=== PATIENT | female | born 1950 | race Caucasian/White ===

== ENCOUNTER 2017-09-10 03:54 | Inpatient (IN) ==
[2017-09-10] MEDS ORDERED: ASPIRIN PO STA (04:05)
[2017-09-10] MEDS ORDERED: CARDIZEM IV ONE ×2 (04:07→16:13)
--- NOTE | 2017-09-10 04:12 | EKG Report ---
Test Performed on : 09/10/2017 04:01:08 AM Test Reason : CHEST PAIN Blood Pressure : / mmHG Vent. Rate : 132 BPM Atrial Rate : 264 BPM P-R Int : 000 ms QRS Dur : 096 ms QT Int : 358 ms P-R-T Axes : 000 077 072 degrees QTc Int : 530 ms Atrial flutter. with 2:1 AV conduction. Septal infarct , age undetermined Abnormal ECG No previous ECGs available Unconfirmed Result
[2017-09-10 04:24] LABS: MANUAL DIFF NEEDED? NO
[2017-09-10 04:29] LABS: BASO% 0.5 % (0.0-0.8); EOS# 0.26 X1000 (0.0-0.7); EOS% 2.6 % (0.0-10.0); HEMATOCRIT 32.7 % (37.0-47.0); IMM GRAN# 0.02 X1000 (0.0-0.04); IMM GRAN% 0.2 % (0.0-0.5); LYMPH# 1.77 X1000 (1.2-3.4); LYMPH% 17.5 % (20.5-51.1); MCH 28.8 PG (27-31); MCHC 30.6 g/dL (33-37); MCV 94.2 FL (81-99); MONO# 0.85 X1000 (0.11-0.59); MONO% 8.4 % (1.7-9.3); MPV 10.1 FL (7.4-10.4); NEUT% 70.8 % (42.2-75.2); PLT 211 X1000 (130-400); RBC 3.47 XMIL (4.2-5.4)
[2017-09-10 04:54] LABS: AGAP 15; ALBUMIN 3.3 g/dL (3.5-5.0); ALKALINE PHOSPHATASE 60 U/L (32-104); BUN 23 mg/dL (8-22); CALCIUM 9.7 mg/dL (8.8-10.2); CHLORIDE 101 mmol/L (98-107); COSMO 283; GOT 22 U/L (10-30); GPT 16 U/L (10-36); POTASSIUM 3.9 mmol/L (3.5-5.1); SODIUM 139 mmol/L (136-145); TCO2 22 mmol/L (25-35); TOTAL PROTEIN 7.5 g/dL (6.3-8.3)
[2017-09-10 04:57] LABS: INR 0.95 (0.86-1.15); PROTIME 13.4 Seconds (12.1-15.5)
[2017-09-10 04:58] LABS: PTT PL 30.8 Seconds (22.6-43.9)
[2017-09-10 05:06] LABS: CK PROFILE 198 U/L (24-173)
[2017-09-10] MEDS ORDERED: LASIX IV ONE (05:31)
[2017-09-10 05:32] LABS: CK INDEX 1.6 (0.0-2.5); CK-MB 3.09 ng/mL (0.0-5.0)
[2017-09-10] MEDS ORDERED: NITROGLYCERIN TOP ONE (05:35)
[2017-09-10] MEDS ORDERED: LOPRESSOR IV ONE (06:56)
[2017-09-10] MEDS ORDERED: LOVENOX 1 MG/KG SUBQ ONE (07:00)
[2017-09-10] MEDS ORDERED: LOVENOX ONE (07:07)
--- NOTE | 2017-09-10 07:41 | Diag Imaging Result Doc PS360 ---
EXAM: CHEST-2 VIEWS - 09/10/2017 HISTORY: CP TECHNIQUE: Chest two views COMPARISON: None. FINDINGS: Heart size appears mildly enlarged. 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 There is apparent central vascular congestion. There is a small right pleural effusion. There is no dense consolidation or pneumothorax identified. There is thoracic spondylosis noted. IMPRESSION: Cardiomegaly with apparent central vascular congestion. Electronically signed by Gianni Leija 09/10/2017 7:39 AM
[2017-09-10 08:03] LABS: CK INDEX 1.6 (0.0-2.5); CK-MB 3.28 ng/mL (0.0-5.0)
--- NOTE | 2017-09-10 08:17 | Diag Imaging Result Doc PS360 ---
EXAM: CT ANGIOGRM/PULMONARY ARTERIES - 09/10/2017 HISTORY: SOB with [id number] D-dimer TECHNIQUE: With intravenous contrast. Axial and reformatted coronal MIP images are obtained. Low-dose protocol not used. COMPARISON: None. FINDINGS: There are no discrete filling defects which are distinguishable from artifacts identified pulmonary arteries. There is cardiomegaly. 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 There is a possible prosthetic aortic valve. There is mild interstitial marking prominence. There is a small right pleural effusion with adjacent mild dependent/compressive atelectasis. There is a tiny left pleural effusion. There is no consolidation or pneumothorax identified. There are mildly prominent mediastinal lymph nodes. IMPRESSION: No evidence of pulmonary embolism. Cardiomegaly with mild congestive heart failure. Mild mediastinal adenopathy. Electronically signed by Gianni Leija 09/10/2017 8:15 AM
--- NOTE | 2017-09-10 16:18 | EKG Report ---
Test Performed on : 09/10/2017 4:13:57 PM Test Reason : Elevated HR Blood Pressure : / mmHG Vent. Rate : 130 BPM Atrial Rate : 131 BPM P-R Int : 112 ms QRS Dur : 108 ms QT Int : 364 ms P-R-T Axes : 000 097 090 degrees QTc Int : 535 ms Sinus tachycardia. Septal infarct (cited on or before 10-SEP-2017) Lateral infarct , age undetermined Abnormal ECG When compared with ECG of 10-SEP-2017 04:01, (Unconfirmed) Sinus rhythm. has replaced Atrial flutter. Unconfirmed Result
[2017-09-10] MEDS ORDERED: LOPRESSOR PO SCH (17:00)
[2017-09-10 17:31] LABS: CK INDEX 1.5 (0.0-2.5); CK-MB 3.07 ng/mL (0.0-5.0)
[2017-09-10] MEDS: LOVENOX SUBQ SCH (18:48)
[2017-09-10] MEDS: LASIX IV SCH (20:25)
[2017-09-10] MEDS: CARDIZEM 100 MG/NS 100 MG/100 ML IVPB IV SCH (21:59)
[2017-09-11] MEDS: CARDIZEM 100 MG/NS 100 MG/100 ML IVPB IV SCH ×2 (04:45→15:15)
--- NOTE | 2017-09-11 06:25 | EKG Report ---
Test Performed on : 09/11/2017 06:16:12 AM Test Reason : afib Blood Pressure : / mmHG Vent. Rate : 084 BPM Atrial Rate : 252 BPM P-R Int : 000 ms QRS Dur : 096 ms QT Int : 324 ms P-R-T Axes : 000 087 104 degrees QTc Int : 382 ms Atrial flutter. with variable AV block. Cannot rule out Anterior infarct (cited on or before 10-SEP-2017) Abnormal ECG When compared with ECG of 10-SEP-2017 16:13, (Unconfirmed) Atrial flutter. has replaced Sinus rhythm. Vent. rate has decreased BY 46 BPM Nonspecific T wave abnormality now evident in Inferior leads Unconfirmed Result
[2017-09-11] MEDS ORDERED: SYNTHROID PO SCH ×2 (07:00→07:30)
[2017-09-11] MEDS: LOVENOX SUBQ SCH ×2 (07:16→19:15)
[2017-09-11] MEDS ORDERED: LEVOTHYROXINE SODIUM 300 MCG PO SCH (09:00)
[2017-09-11] MEDS: LASIX IV SCH ×2 (09:13→21:00)
[2017-09-11 10:23] LABS: AGAP 15; BUN 25 mg/dL (8-22); CALCIUM 8.8 mg/dL (8.8-10.2); CHLORIDE 99 mmol/L (98-107); COSMO 280; POTASSIUM 3.8 mmol/L (3.5-5.1); SODIUM 137 mmol/L (136-145); TCO2 24 mmol/L (25-35)
[2017-09-11 11:57] LABS: URINE CULTURE PL NEEDED? NO
[2017-09-11] MEDS: NORCO-5 PO PRN (12:00)
[2017-09-11 12:04] LABS: BILIRUBIN URINE NEGATIVE (NEGATIVE); BLOOD URINE NEGATIVE (NEGATIVE); CLARITY SL. CLOUDY (CLEAR); COLOR AMBER; GLUCOSE URINE NEGATIVE (NEGATIVE); LEUKOCYTES URINE NEGATIVE (NEGATIVE); NITRITE URINE NEGATIVE (NEGATIVE); PROTEIN URINE 1+(30 mg/dL) mg/dL (NEGATIVE); URINE SOURCE CATH; UROBILINOGEN URINE NORMAL
[2017-09-11 12:05] LABS: URINE EPITHELIAL CELLS <10 /HPF (<10); URINE WBC <10 /HPF (<10)
[2017-09-11] MEDS ORDERED: SYNTHROID PO ONE ×2 (12:12→15:30)
[2017-09-11] MEDS: LOPRESSOR PO SCH ×2 (15:12→19:16)
--- NOTE | 2017-09-11 16:54 | ECHO REPORT ---
ORDER DATE: 09/11/2017 ECHOCARDIOGRAPHIC MEASUREMENTS: 1. Interventricular septum 1.2. Left ventricular posterior wall 1.5. Diastolic diameter 4.6. Left atrium 5. Aorta 3.0. 2. Technically suboptimal study. 3. Normal left ventricular cavity size. Concentric left ventricular hypertrophy. Estimated ejection fraction of 60%. Definity was used to assess left ventricular systolic function. 4. Bioprosthetic aortic valve in the aortic position was stable, sclerosed, calcified. 5. Mitral valve was normal. There is mitral annular calcification. Tricuspid valve was normal. 6. There is moderate mitral regurgitation. 7. Moderate tricuspid regurgitation. Peak velocity across the aortic valve was 4.04 m/sec with a mean gradient of 37 mmHg with a peak gradient of 65 mmHg. Aortic valve area by VTI calculated at 0.8 square cm. There is severe likely restenosis of the aortic valve. Would recommend transesophageal echocardiogram to assess aortic valve. 8. There is no pericardial effusion or obvious intracardiac mass or thrombus. cc: MD Matti Hauser MD
[2017-09-11] MEDS ORDERED: ZOFRAN IV PRN (19:26)
[2017-09-12] MEDS: NORCO-5 PO PRN (01:00)
[2017-09-12] MEDS: LOPRESSOR PO SCH ×4 (02:50→20:38)
[2017-09-12] MEDS: CARDIZEM 100 MG/NS 100 MG/100 ML IVPB IV SCH (03:00)
[2017-09-12 06:49] LABS: CALCIUM 8.7 mg/dL (8.8-10.2); POTASSIUM 3.7 mmol/L (3.5-5.1)
[2017-09-12] MEDS: LOVENOX SUBQ SCH ×2 (06:52→20:37)
[2017-09-12] MEDS: SYNTHROID PO SCH (06:52)
[2017-09-12] MEDS: LASIX IV SCH (10:01)
[2017-09-13] MEDS: LOPRESSOR PO SCH ×4 (03:30→20:54)
[2017-09-13 06:49] LABS: ALBUMIN 3.1 g/dL (3.5-5.0); CALCIUM 8.4 mg/dL (8.8-10.2); POTASSIUM 3.7 mmol/L (3.5-5.1)
[2017-09-13] MEDS: SYNTHROID PO SCH (07:05)
[2017-09-13] MEDS: LOVENOX SUBQ SCH ×2 (08:12→20:55)
[2017-09-13] MEDS: LASIX IV SCH (08:12)
[2017-09-13] MEDS ORDERED: CARDIZEM PO SCH (09:00)
[2017-09-13] MEDS: CARDIZEM CD PO SCH (12:34)
--- NOTE | 2017-09-13 13:32 | Diag Imaging Result Doc PS360 ---
EXAM: CHEST-PORTABLE HISTORY: chf TECHNIQUE: Portable chest COMPARISON: 09/10/2017 FINDINGS: Sternal wires are present. Heart is mildly enlarged and there is mild central vascular prominence. No consolidation. No pleural effusions identified. IMPRESSION: Stable chest. Electronically signed by Geronimo Chavez 09/13/2017 1:30 PM
[2017-09-14] MEDS: NORCO-5 PO PRN ×2 (00:28→14:56)
[2017-09-14] MEDS: LOPRESSOR PO SCH ×3 (02:43→14:56)
[2017-09-14 04:31] LABS: HEMATOCRIT 31.8 % (37.0-47.0); HEMOGLOBIN 9.4 g/dL (12.0-16.0); MCH 27.6 PG (27-31); MCHC 29.6 g/dL (33-37); MCV 93.5 FL (81-99); MPV 10.6 FL (7.4-10.4); RBC 3.4 XMIL (4.2-5.4)
[2017-09-14 05:36] LABS: ALBUMIN 3.3 g/dL (3.5-5.0); CALCIUM 8.6 mg/dL (8.8-10.2); POTASSIUM 3.5 mmol/L (3.5-5.1); TOTAL BILIRUBIN 0.7 mg/dL (0.20-1.00); TOTAL PROTEIN 7.5 g/dL (6.3-8.3)
[2017-09-14 05:52] LABS: FREE T4 1.41 ng/dL (0.93-1.70)
[2017-09-14] MEDS: SYNTHROID PO SCH (06:15)
[2017-09-14] MEDS: LASIX IV SCH (09:15)
[2017-09-14] MEDS: LOVENOX SUBQ SCH (09:15)
[2017-09-14] MEDS: CARDIZEM CD PO SCH (09:15)
[2017-09-14 11:24] VITALS: BP 139/83
== END 2017-09-14 15:02 | disposition home or self-care (01) ==
LOC: P.ED 03:54 → SUATTDRO 07:30 → P.MEDSURG 07:30 → P.ICU 21:58 → P.MEDSURG 09-12 18:37
PROVIDERS: ATTEND Family Medicine